=== PATIENT | female | born 2000 ===

== ENCOUNTER 2021-05-02 23:19 | Emergency (ER) | payer SELFPAY ==
[2021-05-02 23:19] VITALS: BP 161/95; PULSE 104; RESP 16; TEMP 35.6; O2SAT 99; BMI 33.9
--- NOTE | 2021-05-03 00:25 | ED.RN ---
PATIENT NO LONGER WISHED TO WAIT. PATIENT STATES SHE IS GOING TO [place].
== END 2021-05-03 00:24 | disposition left against medical advice (07) ==
LOC: ED 05-03 00:41
DX: S99.912A Unspecified injury of left ankle, initial encounter (principal); X58.XXXA Exposure to other specified factors, initial encounter; Z53.21 Procedure and treatment not carried out due to patient leaving prior to being seen by health care provider